=== PATIENT | female | born 1990 | race Caucasian/White ===

== ENCOUNTER 2019-12-19 19:04 | Inpatient (IN) | payer BC, SELFPAY ==
[2019-12-19] VITALS (10 sets, daily range): BP systolic 96–134; BP diastolic 57–92; PULSE 78–107; TEMP 36.7–37.1; BMI 25.2
--- NOTE | 2019-12-19 19:04 | LDADM ---
This patient, DINAH DAI, was admitted to Labor/Delivery/Recovery 105 on 12/19/19 at 19:04. Plans for labor, pain management and were discussed with patient. Patient/family oriented to hospital policies and general routines including ID bracelet, bed and alarms, visiting hours, pain management, procedures, bathroom and other care routines, personal items, smoking policy, room service/diet and guest tray routines, infant security routines, and visiting hours. Patient/Family are encouraged to report perceived risks to care and to ask questions if they do not understand what they are told or what they should do. See OBIX for further documentation.
[2019-12-19 19:59] LABS: Basophils Percent Auto 0.2 % (0.2-1.2); Eosinophils Absolute Auto 0.2 K/mm3 (0-0.3); Eosinophils Percent Auto 1.4 % (0-4.4); Hemoglobin 12.9 g/dL (12.0-15.0); Immature Granulocyte Absolute 0.06 K/mm3 (0.00-0.031); Immature Granulocyte Percent A 0.4 % (0-0.5); Mean Corpuscular HGB Conc 33.9 g/dl (32-36); Mean Corpuscular Hemoglobin 31.2 pg (26-34); Mean Corpuscular Volume 91.8 fl (80-100); Mean Platelet Volume 10.7 fl (7.4-10.4); Monocytes Absolute Auto 1.1 K/mm3 (0.1-0.6); Monocytes Percent Auto 6.7 % (2.6-8.5); Neutrophils Absolute Auto 12.7 K/mm3 (1.3-6.7); Neutrophils Percent Auto 75.3 % (45.5-73.1); Platelet Count Result 238 k/mm3 (150-375); Red Blood Count 4.14 M/mm3 (4.2-5.4); Red Cell Distribution Width 12.7 % (11.5-14.5); White Blood Count 16.9 K/mm3 (4.5-10.0)
[2019-12-19] MEDS: DINOPROSTONE 10 MG VAG INSERT VAGINAL (20:12)
[2019-12-20] VITALS (165 sets, daily range): BP systolic 83–219; BP diastolic 40–199; PULSE 35–133; RESP 18; TEMP 36.5–37.2; O2SAT 83–100
[2019-12-20] MEDS: OXYTOCIN 30 UNITS/NS 500 ML 30 UNITS/500 ML BAG IV CONT (05:12)
[2019-12-20] MEDS: LACTATED RINGERS 1,000 ML 125 ML IV CONT ×4 (05:13→12:38)
--- NOTE | 2019-12-20 07:30 | WPDOBADMIT ---
Obstetrics - Admit Note Admission Note: record reviewed. Additions to the history and/or subsequent changes in the physical findings follow. 29 y/o G1 at 40 1/7 weeks here for induction of labor. Cervidil overnight, has been withdrawn. GBS neg. Pregancy essentially uncomplicated. AVSS NST reactive TOCO: Contractions every 2-3 min ABD soft, nontender, gravid, vertex EXT nontender Cervix 2-3/50/-2. AROM with clear fluid. Vertex. A: IUP at term, desiring induction of labor. P: S/p Cervidil, now receiving oxytocin. Anticipate .
--- NOTE | 2019-12-20 10:25 | PC.NURSE ---
1010--Phone call to Dr. Charles re: u/s results shows retained products of conception. Orders for consent for D&C.
[2019-12-20 10:31] LABS: Rapid Plasma Reagin Non-Reactive (NonReactive)
--- NOTE | 2019-12-20 11:32 | PM.OBPNLAB ---
Pain Control Date/time seen: 12/20/19 11:32 Comments: Comfortble with epidural. Pelvic Exam Comments: /-. IUPC placed. NST reactive TOCO: contractions every 2-3 min Assessment and Plan Comments: Continue labor.
--- NOTE | 2019-12-20 17:04 | PM.OBPNLAB ---
Pain Control Date/time seen: 12/20/19 17:04 Comments: Feeling more pressure. Pelvic Exam Comments: AVSS NST reactive TOCO: contractions every 2-3 min Cervix C/+1 Assessment and Plan Comments: Begin pushing.
--- NOTE | 2019-12-20 18:48 | P.PCNOB_ITS ---
OB - Delivery Note Procedure Delivery date: 12/20/19 Procedure: induction of labor with Induction method: AROM and per pitocin protocol Delivery monitor: external FHT, external uterine and internal uterine Route of delivery: Episiotomy description: Midline Delivery repair: vicryl (3-0) Specimen: Yes (cord blood) Estimated blood loss (mL): 95 Anesthesia type: Epidural Disposition: PACU Complications: None Narrative: 29 y/o G1 at 40 1/7 weeks gestation who presented to the hospital for induction of labor. Cervidil was placed overnight, followed by intravenous oxyt ocin the following morning. Amniotomy was performed with return of clear fluid. She received an epidural for pain control. Her labor progressed and her cervix dilated completely. She pushed with good effort. A midline episiotomy was made, and she delivered the infant's head to the perineum from TANJA position. A loose nuchal cord was splinted and the body delivered. The cord was reduced. The nose and mouth were bulb suctioned. After a delay, the cord was clamped and cut. The was handed off the field. Cord blood was collected. The placenta delivered spontaneously and was grossly normal in appearance. The usual 3 vessel cord was noted. The midline episiotomy was reapproximated using 3 0 Vicryl in the usual layered fashion. Excellent hemostasis resulted as did excellent reapproximation of the normal anatomy. Needle and instrument counts were correct. The patient was taken to recovery room in stable condition. The infant went to the nursery in stable condition. I was present and scrubbed for the entire delivery. Baby Date of : 12/20/19 Time of : 18:30 Weeks of gestation at delivery: 40 Infant gender: Male Weight (pounds): 7 Weight (ounces): 12 presentation: vertex Placenta delivery description: Spontaneous and Normal Configuration cord vessel description: 3 Vessels score one minute: 8 score five minutes: 9
--- NOTE | 2019-12-20 18:52 | PM.OBDSVD ---
DS: Diagnosis Discharge Diagnosis (1) (normal spontaneous vaginal delivery): Code(s): O80 - Encounter for full-term uncomplicated delivery Status: Acute OB - DS: Summary OB Procedures : None OB Procedures Intrapartum: Spontaneous Vag Delivery OB Procedures: : None Time Spent with Patient Time attestation: Total time spent providing and/or coordinating discharge services: DS: Data Data Completed and Pending Labs on day of discharge: Labs from last 24 hours 12/19/19 12/19/19 12/19/19 19:53 19:53 19:53 WBC 16.9 H RBC 4.14 L Hgb 12.9 Hct 38.0 MCV 91.8 MCH 31.2 MCHC 33.9 RDW 12.7 Plt Count 238 MPV 10.7 H Immature Gran % (Auto) 0.4 Neut % (Auto) 75.3 H Lymph % (Auto) 16.0 L [place] % (Auto) 6.7 Eos % (Auto) 1.4 Baso % (Auto) 0.2 Lymph # (Auto) 2.70 [place] # (Auto) 1.1 H Eos # (Auto) 0.2 Baso # (Auto) 0.0 Abs Immat Gran (auto) 0.06 H Absolute Neuts (auto) 12.7 H Absolute Nucleated RBC 0.0 Nucleated RBC % 0.0 RPR Non-reactive Blood Type B Positive Antibody Screen Negative Discharge Plan Discharge Attending physician on discharge: Mickey Paez Discharging Clinician: Mickey Paez Patient Disposition: Home, Self-Care Activity: pelvic rest Diet: regular Discharge Instructions: Call or return if temperature above 100.4? F, increased abdominal pain, increased vaginal bleeding or any new problems. Stand Alone Forms: General Discharge Information Follow-up/Referrals: Mickey Paez MD [Physician] - (6 weeks) Discharge Medications: New ibuprofen 600 mg tablet 600 mg PO Q6H PRN (Reason: cramps) Qty: 30 RF: 0 No Action PNV cmb#95-ferrous fumarate-FA [] 28 mg iron- 800 mcg Tablet 1 tablet PO DAILY RF: 0 Date of admission: 12/19/19 19:04 Primary Care Provider: UNKNOWN,DOCTOR Admitting Provider: Mickey Paez Attending physician on admission: Mickey Paez
--- NOTE | 2019-12-20 21:10 | PC.NURSE ---
Patient transferred to post room #283 via wheelchair. Support person present. Oriented to unit, room, information board, rooming in, admission packet and security measures. Patient verbalizes understanding.
[2019-12-20] MEDS: IBUPROFEN 600 MG TABLET PO (21:49)
[2019-12-21] MEDS: DOCUSATE SODIUM 100 MG CAPSULE PO ×2 (04:13→17:12)
[2019-12-21] MEDS: IBUPROFEN 600 MG TABLET PO ×4 (04:13→23:57)
[2019-12-21 05:38] LABS: Hematocrit 35.6 % (37.0-47.0); Hemoglobin 11.8 g/dL (12.0-15.0)
[2019-12-21 07:35] VITALS: BP 118/82; PULSE 73; RESP 18; TEMP 36.9; O2SAT 100
--- NOTE | 2019-12-21 07:55 | PC.NURSE ---
Consulted with patient, mother reports tenderness with feeding. Both nipples are slightly reddened from incorrect latch. Nipple care reviewed. Reviewed infant feeding cues, frequencies, duration of feedings, feeding elimination flow sheet, and signs of adequate intake. Demonstrated stimulation techniques to wake for feeding. Assisted with infant to breast. Reviewed positioning/alignment in cross cradle, holding breast in U hold and guided asymmetrical latch on. Infant was able to latch correctly. Mother quickly reports she can feel is latched more deeply than previous feedings. nursed eagerly, with steady draws and frequent swallowing noted. Reviewed signs of a correct latch, effective nursing and suck swallow ratio. Infant was able to maintain latch without discomfort to mother. Suggested mother stimulate to keep awake and nursing effectively for increased intake and assist with maintaining deep latch. Demonstrated how to adjust latch more deeply while feeding. Instructed mother to call out for RN assistance if she is unable to latch for feeding or she has discomfort with nursing. Instructed feeding should be initiated three hours from start of last feeding or if feeding cues are noted before. Mother voiced understanding of information shared
[2019-12-21] MEDS: MULTIVIT/MIN/PREN/FOL AC/IRON TABLET 1 TAB PO (08:37)
--- NOTE | 2019-12-21 11:37 | WPDANLDPN2 ---
Anes-Prog Note L&D Date/Time: 12/21/19 11:37 Comfortable throughout: labor and delivery Neuraxial method: epidural Epidural/Spinal procedure site: clean & non-tender Neuro status: Neuro function grossly intact. Cardiovascular status: normal Respiratory status: normal Airway patency: baseline Mental status: baseline Post-Op hydration status: normal Vital Signs: Last Vital Signs Temp 98.4 F 12/21/19 07:35 Pulse 73 12/21/19 07:35 Resp 18 12/21/19 07:35 BP 118/82 12/21/19 07:35 Pulse Ox 100 12/21/19 07:35 I/O: Intake & Output 12/20/19 12/21/19 12/21/19 23:59 07:59 15:59 Intake Total 1000 Output Total 1100 Balance -100 Post-procedural complaints: none Patient feedback: Patient satisfied with anesthetic care.
--- NOTE | 2019-12-21 13:26 | PM.OBPNVD ---
OB - PN: Subj Subjective Date/time seen: 12/21/19 13:26 Narrative: Pain OK. Desires circumcision for son. OB - PN: Obj Data Labs CBC & Chem 7: 12/21/19 04:41 Labs: Laboratory Results - last 24 hr 12/21/19 04:41 Hgb 11.8 L Hct 35.6 L OB - PN A/P Plan Comments: A: PPD#1, doing well. P: Routine care. Reviewed circ. Exam Psych: Other: AVSS ABD soft, nontender, fundus firm EXT nontender
[2019-12-21] MEDS: BENZOCAINE 20% AER SPR (*SP) 56 GM CAN 1 SPRAY TOPICAL (17:11)
[2019-12-21] MEDS: WITCH HAZEL 40 PADS 1 PAD TOPICAL (17:11)
[2019-12-21 19:52] VITALS: BP 126/82; PULSE 74; RESP 18; TEMP 36.9; O2SAT 97
[2019-12-22] MEDS: IBUPROFEN 600 MG TABLET PO ×2 (05:59→12:49)
[2019-12-22 07:40] VITALS: BP 132/77; PULSE 91; RESP 18; TEMP 36.7; O2SAT 100
--- NOTE | 2019-12-22 09:19 | PM.OBPNVD ---
OB - PN: Subj Subjective Date/time seen: 12/22/19 09:19 Narrative: Pain OK. Would like to go home. OB - PN: Obj Data Labs CBC & Chem 7: 12/21/19 04:41 OB - PN A/P Plan Comments: A: PPD#2, doing well. P: Home to f/u 6 weeks. Exam Psych: Other: AVSS ABD soft, nontender, fundus firm EXT nontender
--- NOTE | 2019-12-22 10:00 | PC.NURSE ---
Observed mother is able to independently latch with appropriate positioning/alignment. She reports slight nipple discomfort, is feeding as required and waking to feed if needed. Assisted with a deeper latch, demonstrated how to adjust latch more deeply while feeding. Mother began supplementing during the night and plans to continue until her milk is establishes. Infant has had 8 effective feedings in the past 24 hours, and is currently meeting outcomes for weight, output, jaundice and feeding frequencies. Mother states she feels confident to continue current feeding plan at home. Reviewed transition to breast milk, signs of adequate intake, and engorgement/relief. Instructed to call ICP if intake/output less than required. Reviewed regular medications mother is taking. Information provided per Taniya. Reviewed community resources on the [facility] website and in the Mom/Baby guide. Information on outpatient services provided. Mother has no further questions at this time.
[2019-12-22] MEDS: DOCUSATE SODIUM 100 MG CAPSULE PO (10:24)
[2019-12-22] MEDS: MULTIVIT/MIN/PREN/FOL AC/IRON TABLET 1 TAB PO (10:24)
--- NOTE | 2019-12-22 13:45 | PC.NURSE ---
1120-Patient viewed the discharge video Mother & Baby Care, The First Two Weeks . Patient was given the opportunity and encouraged to ask questions. Patient verbalized understanding of information shared and has been given the mother/baby guide for home reference.
[2019-12-23 11:26] VITALS: BP 116/85; PULSE 75; RESP 20; TEMP 36.8
== END 2019-12-22 14:04 | disposition home or self-care (01) | DRG 807 ==
LOC: ANHLDR 12-20 18:53 → ANHOB2 12-20 21:15
PROVIDERS: Admitting Provider Obstetrics & Gynecology; Visit Provider Obstetrics & Gynecology
DX: O69.81X0 Labor and delivery complicated by cord around neck, without compression, not applicable or unspecified (principal); Z37.0 Single live birth; Z3A.40 40 weeks gestation of pregnancy; Z23 Encounter for immunization; O76 Abnormality in fetal heart rate and rhythm complicating labor and delivery
CPT/HCPCS: 36415; 85014; 85018; 85025; 86592; 86850; 86900; 86901; A9270; J2590; J2795; J7120

== ENCOUNTER 2021-10-10 15:54 | Inpatient (IN) | payer BC, SELFPAY ==
[2021-10-10] VITALS (16 sets, daily range): BP systolic 106–132; BP diastolic 64–94; PULSE 63–109; TEMP 37.6; O2SAT 99–100; BMI 25.0
--- NOTE | 2021-10-10 16:32 | LDADM ---
This patient, Mary Doss, was admitted to Labor/Delivery/Recovery 107 on 10/10/21 at 15:54. Plans for labor, pain management and were discussed with patient. Patient/family oriented to hospital policies and general routines including ID bracelet, bed and alarms, visiting hours, pain management, procedures, bathroom and other care routines, personal items, smoking policy, room service/diet and guest tray routines, security routines, and visiting hours. Patient/Family are encouraged to report perceived risks to care and to ask questions if they do not understand what they are told or what they should do. See OBIX for further documentation.
[2021-10-10 16:43] LABS: Basophils Percent Auto 0.2 % (0.2-1.2); Eosinophils Absolute Auto 0.2 K/mm3 (0-0.3); Eosinophils Percent Auto 1.6 % (0-4.4); Hematocrit 38.1 % (37.0-47.0); Immature Granulocyte Absolute 0.06 K/mm3 (0.00-0.031); Immature Granulocyte Percent A 0.5 % (0-0.5); Lymphocytes Absolute Auto 1.98 K/mm3 (0.9-3.2); Mean Corpuscular HGB Conc 34.1 g/dl (32-36); Mean Corpuscular Hemoglobin 31.5 pg (26-34); Mean Corpuscular Volume 92.3 fl (80-100); Mean Platelet Volume 10.2 fl (7.4-10.4); Monocytes Absolute Auto 0.7 K/mm3 (0.1-0.6); Monocytes Percent Auto 5.2 % (2.6-8.5); Neutrophils Absolute Auto 9.5 K/mm3 (1.3-6.7); Neutrophils Percent Auto 76.5 % (45.5-73.1); Platelet Count Result 215 k/mm3 (150-375); Red Blood Count 4.13 M/mm3 (4.2-5.4); Red Cell Distribution Width 13.1 % (11.5-14.5); White Blood Count 12.4 K/mm3 (4.5-10.0)
[2021-10-10] MEDS: LACTATED RINGERS 1,000 ML 125 ML IV CONT (16:45)
[2021-10-10] MEDS: DINOPROSTONE 10 MG VAG INSERT VAGINAL (16:50)
[2021-10-10] MEDS: ceFAZolin 2 GM/D5W 50 ML 2 GM/50 ML BAG IVPB (16:56)
--- NOTE | 2021-10-10 17:32 | WPDANESEPP ---
Anes - Eval Pre Procedure Procedure: labor epidural Date/Time: 10/10/21 17:32 Surgeon: camelia Preop Diagnosis: pain during labor Pre Op Diagnosis: iol Patient Data Age: 31 Gender: F Height: 1.68 m Weight: 70.5 kg Last Vital Signs Temp 37.6 C 10/10/21 16:40 Pulse 95 10/10/21 17:31 BP 124/85 10/10/21 17:31 Pulse Ox 99 10/10/21 16:37 Allergies Allergy/AdvReac Type Severity Reaction Status Date / Time Penicillins Allergy Hives Verified 11/20/19 14:38 Home Medications Medication Instructions Recorded Confirmed Type PNV cmb#95-ferrous fumarate-FA 1 tablet PO DAILY 09/06/21 10/10/21 History [] levothyroxine 50 mcg PO DAILY 09/06/21 10/10/21 History hydrocortisone 1 ea TOPICAL BID PRN 10/10/21 10/10/21 History Laboratory Tests 10/10/21 10/10/21 16:37 16:37 WBC 12.4 K/mm3 H K/mm3 (4.5-10.0) RBC 4.13 M/mm3 L M/mm3 (4.2-5.4) Hgb 13.0 g/dL g/dL (12.0-15.0) Hct 38.1 % % (37.0-47.0) MCV 92.3 fl fl (80-100) MCH 31.5 pg pg (26-34) MCHC 34.1 g/dl g/dl (32-36) RDW 13.1 % % (11.5-14.5) Plt Count 215 k/mm3 k/mm3 (150-375) MPV 10.2 fl fl (7.4-10.4) Immature Gran % (Auto) 0.5 % % (0-0.5) Neut % (Auto) 76.5 % H % (45.5-73.1) Lymph % (Auto) 16.0 % L % (18.3-44.2) [place] % (Auto) 5.2 % % (2.6-8.5) Eos % (Auto) 1.6 % % (0-4.4) Baso % (Auto) 0.2 % % (0.2-1.2) Lymph # (Auto) 1.98 K/mm3 K/mm3 (0.9-3.2) [place] # (Auto) 0.7 K/mm3 H K/mm3 (0.1-0.6) Eos # (Auto) 0.2 K/mm3 K/mm3 (0-0.3) Baso # (Auto) 0.0 K/mm3 K/mm3 (0.0-0.1) Abs Immat Gran (auto) 0.06 K/mm3 H K/mm3 (0.00-0.031) Absolute Neuts (auto) 9.5 K/mm3 H K/mm3 (1.3-6.7) Absolute Nucleated RBC 0.0 K/mm3 K/mm3 (0.0-0.012) Nucleated RBC % 0.0 % % (0.0-0.2) RPR Pending Patient hx anesthesia problems: none Family hx anesthesia problems: none Results Review: All pre-operative results and documents have been reviewed as part of the pre-operative evaluation. [facility] Family History Family History Sibling Colon cancer Grandparent Diabetes mellitus Grandparent Ovarian cancer Mother Asthma Idiopathic anaphylaxis Sibling Asthma Grandparent Malignant neoplasm of prostate Social History Social History Smoking status: Never smoker Second hand tobacco smoke exposure: No Substance use: never Spiritual care concerns: No Exam Day of Procedure 10/10/21 17:32
[2021-10-11] VITALS (173 sets, daily range): BP systolic 79–163; BP diastolic 36–133; PULSE 55–201; RESP 18–20; TEMP 36.6–37.8; O2SAT 74–100
[2021-10-11] MEDS: OXYTOCIN 30 UNITS/NS 500 ML 30 UNITS/500 ML BAG IV CONT (05:45)
--- NOTE | 2021-10-11 09:15 | WPDOBADMIT ---
Obstetrics - Admit Note Admission Note: record reviewed. Additions to the history and/or subsequent changes in the physical findings follow. 31 y/o at 40 5/7 weeks here for induction of labor. Recent COVID-19 infection, still on isolation. GBS bacteruria, have planned Ancef. No cough, no SOB. Good movement. Had Cervidil last night, has been withdrawn. Feeling contractions. AVSS NST reactive TOCO: contractions every 2-3 min ABD soft, nontender, gravid, vertex EXT nontender Cervix 4/50/-2. AROM with clear fluid. Vertex. A: IUP at term here for IOL. COVID-19 infection, clinically stable. GBS bacteruria. P: Oxytocin. Ancef. Anticipate .
[2021-10-11] MEDS: LACTATED RINGERS 1,000 ML 125 ML IV CONT ×3 (10:12→15:37)
[2021-10-11 11:37] LABS: Rapid Plasma Reagin Non-Reactive (NonReactive)
[2021-10-11] MEDS: PHENYLEPHRINE 1,000 MCG/10 ML SYRINGE 100 MCG IV PUSH (11:57)
[2021-10-11] MEDS: ONDANSETRON INJ 4 MG/2 ML VIAL IV PUSH (12:53)
--- NOTE | 2021-10-11 13:04 | PM.OBPNLAB ---
Pain Control Date/time seen: 10/11/21 13:04 Comments: Pain under good control with epidural. Had wet tap, some hypotension, some FHR decelerations. These have resolved with usual measures. Contractions infrequent with oxytocin off. Pelvic Exam Dilation (cm): 6 Effacement (%): 80 station: -1 Contractions Contraction pattern: Irregular Status status: Category ll Assessment and Plan Comments: FHR reassuring. Maternal status reassuring. Plan to resume oxytocin.
--- NOTE | 2021-10-11 17:24 | P.PCNOB_ITS ---
OB - Delivery Note Procedure Delivery date: 10/11/21 Procedure: Induction of labor with Induction method: per cervidil protocol Delivery augmentation: rupture of membranes and pitocin Delivery monitor: external FHT and external uterine Route of delivery: Laceration Description: Vaginal - 1st Degree and Labial Delivery repair: vicryl (3-0) Specimen: Yes (cord blood) Quantitative Blood Loss (ml): 220 Anesthesia type: Epidural Disposition: PACU Complications: None Narrative: 31 y/o at 40 5/7 weeks gestation who presented to the [facility] for induction of labor. She was given Ancef for GBS bacteruria. Cervidil was placed overnight, then withdrawn the following morning. Oxytocin was administered intravenously. Amniotomy was performed with return of clear fluid. She received an epidural for pain control. Her labor progressed and her cervix dilated completely. She pushed with good effort and delivered the 's head to the perineum, followed by the body. The nose and mouth were bulb suctioned. After a delay, the cord was clamped and cut. The infant was handed off the field. Cord blood was collected. The placenta delivered spontaneously and was grossly normal in appearance. The usual 3 vessel cord was noted. A distal vaginal laceration was sustained, as were bilateral labial lacerations. These were reapproximated using 3 0 Vicryl in the usual fashion. Excellent hemostasis resulted as did excellent reapproximation of the normal anatomy. Needle and instrument counts were correct. The patient was taken to recovery room in stable condition. The infant went to the nursery in stable condition. I was present and scrubbed for the entire delivery. Baby Date of : 10/11/21 Time of : 17:04 Weeks of gestation at delivery: 40 Infant gender: Female Weight (pounds): 7 Weight (ounces): 13 presentation: vertex position: Right Occiput Anterior Placenta delivery description: Spontaneous and Normal Configuration cord vessel description: 3 Vessels and Delayed Cord Clamping score one minute: 9 score five minutes: 9
--- NOTE | 2021-10-11 17:29 | PM.OBDSVD ---
DS: Admitting Diagnosis Discharge Date 10/13/21 Admitting Diagnosis IUP at 40 5/7 weeks GBS bacteruria COVID-19 infection DS: Discharge Diagnosis Discharge Diagnosis (1) (normal spontaneous vaginal delivery): Code(s): O80 - Encounter for full-term uncomplicated delivery Status: Acute (2) GBS bacteriuria: Code(s): R82.71 - Bacteriuria Status: Acute (3) COVID-19 affecting childbirth: Code(s): O98.52 - Other viral diseases complicating childbirth; U07.1 - COVID-19 Status: Acute OB - DS: Summary OB Procedures : None OB Procedures Intrapartum: Spontaneous Vag Delivery OB Procedures: : None DS: Data Data Completed and Pending Labs on day of discharge: Labs from last 24 hours 10/10/21 10/10/21 16:37 16:37 RPR Non-reactive Blood Type B Positive Antibody Screen Negative Discharge Plan Discharge Attending physician on discharge: Mickey Paez Consulting providers: Willem Golden Discharging Clinician: Mickey Paez Patient Disposition: Home, Self-Care Activity: pelvic rest Diet: regular Discharge Instructions: Call or return if temperature above 100.4? F, increased abdominal pain, increased vaginal bleeding or any new problems. Education: Mom and Baby Guide Given to: Mother Follow-Up: Call your delivering provider's office for an appointment to be seen in: 6 Weeks Mom and baby should come to the [facility] for the follow-up appointment. Appointment Date/Time: October 15, 2021 at 11:00 am What to expect at your follow-up visit: Physical Assessment Call [phone] if you are unable to keep your appointment time. BREAST CARE: * Wear a snug supportive bra. * For engorgement discomfort: Breast Feeding: * Apply warm moist washcloths * Express milk as needed to relieve engorgement * Wear loose clothing * For sore nipples: * Identify correct latch-on * Apply warm moist washcloths before and after nursing * Air dry nipples after nursing * May apply [place] cream to nipples PERINEAL CARE: * Until bleeding stops, use your kala bottle after urinating * Change your pad frequently throughout the day * You may take sitz baths several times a day (fill your bathtub with warm water and soak for 20 minutes.) Do NOT bathe in the water * No tub baths until seen by your physician - You may shower ACTIVITY: * Rest as much as possible. * Do not exercise or lift anything heavier than your baby (such as laundry or other children.) * Avoid stairs or driving as much as possible. * Do not put anything into the vagina. No douching, tampons, or sexual activity until seen by physician. NOTIFY PHYSICIAN IF YOU HAVE ANY QUESTIONS OR IF ANY OF THE FOLLOWING SYMPTOMS OCCUR: * If your perineum becomes red, swollen, or more painful than what you have experienced in the hospital. * If your vaginal bleeding becomes foul smelling. * If your vaginal bleeding becomes more heavy than a period or if your bleeding changes from pink to bright red. However, you may pass an occasional [place]-sized clot once or twice for the first week . * If you experience a sharp, shooting pain in you calves. * If you discover a hard, reddened area on your breast or if you experience flu-like symptoms. DIET: * Eat regular, well-balanced meals. * Drink plenty of fluids daily. If , drink to thirst. Stand Alone Forms: General Discharge Information Follow-up/Referrals: Mickey Paez MD [Physician] - 6 Weeks Discharge Medications: New ibuprofen 600 mg tablet 600 mg PO Q6H PRN (Reason: cramps) Qty: 30 RF: 0 Continued levothyroxine 50 mcg Tablet 50 mcg PO DAILY RF: 0 PNV cmb#95-ferrous fumarate-FA [] 28 mg iron- 800 mcg Tablet 1 tablet PO DAILY RF: 0 hydrocortisone 2.5 % cream with perineal applicator 1 ea topical BID PRN (Re
[2021-10-11] MEDS: OXYTOCIN 30 UNITS/NS 500 ML 30 UNITS/500 ML BAG 125 UNITS IV CONT (17:39)
[2021-10-11] MEDS: COSYNTROPIN 0.25 MG/ML VIAL 1 MG IV PUSH (18:54)
[2021-10-11] MEDS: ACETAMINOPHEN 325 MG TABLET 650 MG PO (19:26)
[2021-10-11] MEDS: IBUPROFEN 600 MG TABLET PO (19:26)
[2021-10-11] MEDS: BENZOCAINE 20% AER SPR (*SP) 56 GM CAN 1 SPRAY TOPICAL (19:27)
[2021-10-11] MEDS: WITCH HAZEL 40 PADS 1 PAD TOPICAL (19:27)
--- NOTE | 2021-10-11 19:44 | ADMGEN ---
This patient, Mary Doss, was admitted to OB 2nd Floor Room 283-00. Patient/family oriented to hospital policies and general routines including ID bracelet, bed and alarms, visiting hours, pain management, procedures, bathroom and other care routines, personal items, smoking policy, room service/diet, and visiting hours. Information on how to activate the Rapid Response Team has been discussed. Patient/Family are encouraged to report perceived risks to care and to ask questions if they do not understand what they are told or what they should do.
[2021-10-12] VITALS (7 sets, daily range): BP systolic 112–126; BP diastolic 73–85; PULSE 57–80; RESP 14–18; TEMP 36.6–37; O2SAT 99–100
[2021-10-12] MEDS: ACETAMINOPHEN 325 MG TABLET 650 MG PO ×2 (00:51→12:30)
[2021-10-12] MEDS: IBUPROFEN 600 MG TABLET PO ×3 (00:52→17:15)
[2021-10-12 04:48] LABS: Hematocrit 34.2 % (37.0-47.0); Hemoglobin 11.7 g/dL (12.0-15.0)
--- NOTE | 2021-10-12 07:54 | PM.OBPNVD ---
OB - PN: Subj Subjective Date/time seen: 10/12/21 07:54 Patient comments: no complaints, pain well controlled and tolerating diet [place] feeding status: exclusively breast feeding Narrative: patient doing well this AM. No complaints. Pain is well controlled. She reports minimal bleeding. She is ambulating and voiding without difficulty. She is tolerating PO. She denies N/V, fever, chills. OB - PN: Obj Data Labs CBC & Chem 7: 10/12/21 03:48 Labs: Laboratory Results - last 24 hr 10/10/21 10/12/21 16:37 03:48 Hgb 11.7 L Hct 34.2 L RPR Non-reactive OB - PN A/P Plan day: 1 Plan: routine care Comments: patient doing well H/H stable continue routine care Time Spent With Patient Time: Total time spent is greater than 50% in coordination of care (as documented) at patient's floor/unit and/or counseling patient: Time with patient: less than 15 minutes Review of Systems Review of Systems: All systems reviewed & are unremarkable except as noted in HPI and below Exam Const: General: comfortable and no acute distress Resp: Effort & Inspection: normal respiratory effort Cardio: Rate: regular rate GI: GI Palp: Yes Soft to palpation and No Tenderness to palpation present (GI) Auscultation: normal bowel sounds Other: fundus firm and below umbilicus. Psych: Affect: normal affect
[2021-10-12] MEDS: DOCUSATE SODIUM 100 MG CAPSULE PO ×2 (08:00→17:15)
[2021-10-12] MEDS: MULTIVIT/MIN/PREN/FOL AC/IRON TABLET 1 TAB PO (08:00)
[2021-10-12] MEDS: LEVOTHYROXINE SODIUM 50 MCG TABLET PO (08:00)
[2021-10-12] MEDS: LANOLIN (LANSINOH) 7.5 GM CREAM 1 APPLIC TOPICAL (08:00)
--- NOTE | 2021-10-12 11:42 | PC.NURSE ---
1135 - Mother verbalizes she is able to independently latch with appropriate positioning/alignment. She denies any nipple discomfort, verbalized watching for feeding cues and is responsive feeding . is currently meeting outcomes for weight, output, jaundice and feeding frequencies. Mother states she does not require feeding assist/education at this time. Encouraged mother to call out for future feedings if assistance is needed.
--- NOTE | 2021-10-12 18:16 | PC.NURSE ---
1330 Spoke with anesthesia. reported no signs of headache. Instructed to remove catheter and observe for symptoms of spinal headache. Epidural catheter removed, blue tip visualized, discussed s/sx to report. 1345 Reports no sign of headache 1400 Reports no sign of headache even upon ambulating to bathroom. Pt sitting upright in bed.
[2021-10-13] MEDS: IBUPROFEN 600 MG TABLET PO ×2 (00:02→07:43)
[2021-10-13] MEDS: ACETAMINOPHEN 325 MG TABLET 650 MG PO (00:02)
[2021-10-13] MEDS: MULTIVIT/MIN/PREN/FOL AC/IRON TABLET 1 TAB PO (07:42)
[2021-10-13] MEDS: LEVOTHYROXINE SODIUM 50 MCG TABLET PO (07:42)
[2021-10-13 07:45] VITALS: BP 117/80; PULSE 64; RESP 18; TEMP 36.5
--- NOTE | 2021-10-13 08:27 | PM.OBDSVD ---
DS: Admitting Diagnosis Discharge Date 10/13/21 Admitting Diagnosis intrauterine at term OB - DS: Summary OB Procedures : None OB Procedures Intrapartum: Spontaneous Vag Delivery OB Procedures: : None Status at Discharge Functional status at discharge: independent ambulation Overall status at discharge: patient is back to baseline Time Spent with Patient Time attestation: Total time spent providing and/or coordinating discharge services: Time spent: Less than 30 minutes Exam Const: General: comfortable and no acute distress Resp: Effort & Inspection: normal respiratory effort Auscultation: clear to auscultation bilaterally Cardio: Rate: regular rate GI: GI Palp: Yes Soft to palpation Auscultation: normal bowel sounds Other: Fundus firm below umbilicus Psych: Appearance: grossly normal Mental Status: mental status grossly normal Affect: normal affect Discharge Plan Discharge Attending physician on discharge: Mickey Paez Discharging Clinician: Mickey Paez Patient Disposition: Home, Self-Care Activity: pelvic rest Diet: regular Discharge Instructions: Call or return if temperature above 100.4? F, increased abdominal pain, increased vaginal bleeding or any new problems. Stand Alone Forms: General Discharge Information Follow-up/Referrals: Mickey Paez MD [Physician] - 6 Weeks Discharge Medications: New ibuprofen 600 mg tablet 600 mg PO Q6H PRN (Reason: cramps) Qty: 30 RF: 0 No Action levothyroxine 50 mcg Tablet 50 mcg PO DAILY RF: 0 PNV cmb#95-ferrous fumarate-FA [] 28 mg iron- 800 mcg Tablet 1 tablet PO DAILY RF: 0 hydrocortisone 2.5 % cream with perineal applicator 1 ea topical BID PRN (Reason: Hemorrhoids) RF: 0 Date of admission: 10/10/21 15:54 Primary Care Provider: KeonFlavia Admitting Provider: Mickey Paez Attending physician on admission: Mickey Paez Condition: Stable
--- NOTE | 2021-10-13 11:08 | WPDANLDPN2 ---
Anes-Prog Note L&D Date/Time: 10/13/21 11:08 Comfortable throughout: labor and delivery (pt states epidural stopped working once she reached 8cm despite additional boluses) Neuraxial method: epidural Epidural/Spinal procedure site: clean & non-tender Neuro status: Neuro function grossly intact. Cardiovascular status: normal Respiratory status: normal Airway patency: baseline Mental status: baseline Post-Op hydration status: normal Vital Signs: Last Vital Signs Temp 97.7 F 10/13/21 07:45 Pulse 64 10/13/21 07:45 Resp 18 10/13/21 07:45 BP 117/80 10/13/21 07:45 Pulse Ox 100 10/12/21 17:00 Pain score (VAS): 0 Post-procedural complaints: none Patient feedback: Patient satisfied with anesthetic care.
[2021-10-15 10:42] VITALS: BP 143/87; PULSE 67; RESP 20; TEMP 36.7; O2SAT 100
== END 2021-10-13 11:03 | disposition home or self-care (01) | DRG 807 ==
LOC: ANHLDR 10-11 17:32 → ANHOB2 10-11 19:47
PROVIDERS: Admitting Provider Obstetrics & Gynecology; PCP Registered Nurse; Visit Provider Obstetrics & Gynecology
DX: O99.824 Streptococcus B carrier state complicating childbirth (principal); Z37.0 Single live birth; O76 Abnormality in fetal heart rate and rhythm complicating labor and delivery; O70.0 First degree perineal laceration during delivery; Z3A.40 40 weeks gestation of pregnancy; Z86.16 Personal history of COVID-19
CPT/HCPCS: 36415; 85014; 85018; 85025; 86592; 86850; 86900; 86901; A9270; J0690; J0834; J2370; J2405; J2590; J7120

== ENCOUNTER 2021-10-16 18:07 | Outpatient (CLI) | payer BC, SELFPAY ==
[2021-10-16] VITALS (8 sets, daily range): BP systolic 120–175; BP diastolic 72–100; PULSE 57–79
[2021-10-16 18:39] LABS: Basophils Percent Auto 0.2 % (0.2-1.2); Eosinophils Absolute Auto 0.5 K/mm3 (0-0.3); Eosinophils Percent Auto 3.8 % (0-4.4); Hematocrit 40.5 % (37.0-47.0); Hemoglobin 13.7 g/dL (12.0-15.0); Immature Granulocyte Absolute 0.09 K/mm3 (0.00-0.031); Immature Granulocyte Percent A 0.7 % (0-0.5); Lymphocytes Absolute Auto 2.73 K/mm3 (0.9-3.2); Lymphocytes Percent Auto 22.2 % (18.3-44.2); Mean Corpuscular HGB Conc 33.8 g/dl (32-36); Mean Corpuscular Hemoglobin 31.8 pg (26-34); Monocytes Absolute Auto 0.7 K/mm3 (0.1-0.6); Monocytes Percent Auto 5.3 % (2.6-8.5); Neutrophils Absolute Auto 8.3 K/mm3 (1.3-6.7); Neutrophils Percent Auto 67.8 % (45.5-73.1); Platelet Count Result 316 k/mm3 (150-375); Red Blood Count 4.31 M/mm3 (4.2-5.4); Red Cell Distribution Width 12.6 % (11.5-14.5); White Blood Count 12.3 K/mm3 (4.5-10.0)
[2021-10-16 18:47] LABS: Alanine Aminotransferase 17 U/L (4-35); Albumin Level 4.3 g/dL (3.5-5.1); Alkaline Phosphatase 118 U/L (38-126); Anion Gap 11 mmol/L (8-16); Aspartate Amino Transferase 21 U/L (14-36); Bilirubin,Total 0.3 mg/dL (0.2-1.3); Blood Urea Nitrogen 13 mg/dL (7-17); Calcium 9.4 mg/dL (8.4-10.2); Carbon Dioxide 23 mmol/L (22-30); Chloride 103 mmol/L (98-107); Estimated Glomerular Filt Rate > 60; Glucose 103 mg/dL (65-110); Potassium 4.1 mmol/L (3.4-5.0); Sodium 137 mmol/L (137-145)
--- NOTE | 2021-10-16 18:59 | PC.NURSE ---
called Dr. Golden notified pt BP and PIH result. Labetalol order received. observe for one hour and if BP is stable, may discharge to home with labetalol Rx.
[2021-10-16] MEDS: LABETALOL HCL 100 MG TABLET 200 MG PO (19:05)
== END 2021-10-16 20:30 | disposition home or self-care (01) ==
LOC: ANHOBOP 18:16 → ANHLDR 20:05
PROVIDERS: PCP Registered Nurse; Visit Provider Obstetrics & Gynecology
DX: O13.9 Gestational [pregnancy-induced] hypertension without significant proteinuria, unspecified trimester (principal); Z3A.00 Weeks of gestation of pregnancy not specified
CPT/HCPCS: 36415; 80053; 84550; 85025; 99199; A9270

== ENCOUNTER 2023-02-19 08:06 | Outpatient (CLI) | payer BC, SELFPAY ==
--- NOTE | ~2023-02-19 | US_ITS ---
EXAMINATION: US thyroid DATE: 02/19/2023 08:31 INDICATION: Acquired hypothyroidism. TECHNIQUE: Multiple ultrasound images of the thyroid were obtained. COMPARISON: None. FINDINGS: The right thyroid lobe measures 4.0 x 1.1 x 1.6 cm. The left thyroid lobe measures 4.7 x 1.4 x 1.4 c m. There is normal echotexture and echogenicity throughout the thyroid gland. No discrete nodules id entified. Normal vascular flow is present. IMPRESSION: 1. Normal thyroid. Reviewed, dictated and finalized at location A. IMPRESSION: 1. Normal thyroid.
== END 2023-02-19 08:07 | disposition home or self-care (01) ==
PROVIDERS: PCP Registered Nurse; Visit Provider Registered Nurse
DX: E03.9 Hypothyroidism, unspecified (principal); R13.13 Dysphagia, pharyngeal phase
CPT/HCPCS: 76536

== ENCOUNTER 2023-05-09 14:06 | Emergency (ER) | payer BC, SELFPAY ==
[2023-05-09] VITALS (19 sets, daily range): BP systolic 116–147; BP diastolic 72–98; PULSE 72–130; RESP 10–31; TEMP 36.7; O2SAT 100
--- NOTE | 2023-05-09 14:12 | ECG_ITS ---
Measurements Intervals [place] Rate: 100 P: 72 NV: 146 QRS: 64 QRSD: 95 T: 50 QT: 312 QTc: 403 Interpretive Statements SINUS TACHYCARDIA NONSPECIFIC T-WAVE ABNORMALITY ABNORMAL RHYTHM ECG NO PREVIOUS ECG AVAILABLE FOR COMPARISON Electronically Signed On 05-09-2023 16:11:33 CDT by Mayank Urrutia M.D.
[2023-05-09 14:38] LABS: Basophils Percent Auto 0.2 % (0.2-1.2); Eosinophils Absolute Auto 0.3 K/mm3 (0-0.3); Eosinophils Percent Auto 2.9 % (0-4.4); Hematocrit 40.5 % (37.0-47.0); Hemoglobin 13.5 g/dL (12.0-15.0); Immature Granulocyte Absolute 0.02 K/mm3 (0.00-0.031); Immature Granulocyte Percent A 0.2 % (0-0.5); Lymphocytes Absolute Auto 1.75 K/mm3 (0.9-3.2); Lymphocytes Percent Auto 20.6 % (18.3-44.2); Mean Corpuscular HGB Conc 33.3 g/dl (32-36); Mean Corpuscular Hemoglobin 30.6 pg (26-34); Mean Corpuscular Volume 91.8 fl (80-100); Mean Platelet Volume 10.3 fl (7.4-10.4); Monocytes Absolute Auto 0.5 K/mm3 (0.1-0.6); Monocytes Percent Auto 5.4 % (2.6-8.5); Neutrophils Percent Auto 70.7 % (45.5-73.1); Platelet Count Result 262 k/mm3 (150-375); Red Blood Count 4.41 M/mm3 (4.2-5.4); Red Cell Distribution Width 12.2 % (11.5-14.5); White Blood Count 8.5 K/mm3 (4.5-10.0)
[2023-05-09 14:39] LABS: Alanine Aminotransferase 19 U/L (6-35); Albumin Level 4.7 g/dL (3.5-5.1); Alkaline Phosphatase 53 U/L (38-126); Anion Gap 9 mmol/L (8-16); Aspartate Amino Transferase 19 U/L (14-36); Bilirubin,Total 0.6 mg/dL (0.2-1.3); Blood Urea Nitrogen 16 mg/dL (7-17); Calcium 8.7 mg/dL (8.4-10.2); Carbon Dioxide 27 mmol/L (22-30); Chloride 101 mmol/L (98-107); Estimated CRCL calculation 76 ml/min; Estimated Glomerular Filt Rate > 60; Glucose 140 mg/dL (65-110); Potassium 4.1 mmol/L (3.4-5.0); Sodium 137 mmol/L (137-145)
[2023-05-09] MEDS: SODIUM CHLORIDE 0.9% IV 1,000 ML 999 ML IV CONT ×2 (17:15→17:54)
--- NOTE | 2023-05-09 17:59 | ED.GENADULT ---
HPI - General Adult General Chief complaint: Dizziness Stated complaint: lightheaded x2, nausea Time Seen by Provider: 05/09/23 16:12 History of Present Illness HPI narrative: 32-year-old female present emergency department for evaluation of lightheaded and dizziness. Patient had an episode of near syncope yesterday that she had onset of lightheaded and dizziness like she was going to pass out while standing. Patient reports she sat down and was able to drink some water and this improved. Patient reports today she had a second episode during which she had similar symptoms and needed to lay down and elevate her feet and felt improved. Patient's family came to pick her up and as they were driving home she had a third episode and so they presented to the emergency department for evaluation. When asked if the patient has been eating and drinking well she reported that she is quite busy with 2 toddlers. Patient does have prior history of hypertension during and was on labetalol but patient is no longer taking medications for blood pressure. Related Data Home Medications Medication Instructions Recorded Confirmed levothyroxine 50 mcg tablet 50 mcg PO DAILY 09/06/21 10/10/21 vit no.95-ferrous 1 tablet PO DAILY 09/06/21 10/10/21 fumarate 28 mg-folic acid 800 mcg tablet () hydrocortisone 2.5 % topical cream 1 ea topical BID PRN Hemorrhoids 10/10/21 10/10/21 with perineal applicator Allergies Allergy/AdvReac Type Severity Reaction Status Date / Time Penicillins Allergy Hives Verified 11/20/19 14:38 Review of Systems Review of Systems: All systems reviewed & are unremarkable except as noted in HPI and below PMFSH Family History Family History Sibling Colon cancer Grandparent Diabetes mellitus Grandparent Ovarian cancer Mother Asthma Idiopathic anaphylaxis Sibling Asthma Grandparent Malignant neoplasm of prostate Social History Social History Smoking status: Never smoker Second hand tobacco smoke exposure: No Substance use: never Spiritual care concerns: No Exam Narrative: APPEARANCE: Well appearing, no pain, no distress, well-nourished. HEAD: normocephalic, atraumatic. EYES: PERRLA/EOMI, conjunctivae clear. NOSE: Normal no drainage EARS:TMS clear with good light reflex. THROAT: Pharynx clear, no exudate. NECK: Supple. No adenopathy, no masses. RESPIRATORY: Airway patent, respirations nonlabored. Clear to auscultation bilaterally, no rales, rhonchi, wheezing. CARDIOVASCULAR: Regular rate and rhythm without murmurs rubs or gallops. ABDOMINAL: Soft, nontender, nondistended, normal bowel sounds MUSCULOSKELETAL: Moves all extremities. Strength/ROM intact, No edema, No calf tenderness. NEURO: Alert. Cranial nerves II through XII intact. Grossly intact SKIN: Warm, dry. Normal Color Course Course Emergency Course: 32-year-old female presented ED for evaluation of episodes of orthostatic hypotension. Patient does feel improved with treatment. Patient's orthostatic vital signs were resolved. Patient is D-dimer was negative patient's thyroid was normal. Patient was updated the results of her work-up and patient was comfortable with the plan for discharge and close follow-up. Vital Signs Vital signs: Vital Signs Temperature 98.1 F 05/09/23 14:08 Pulse Rate 105 H 05/09/23 14:08 Respiratory Rate 16 05/09/23 14:08 Blood Pressure 137/90 05/09/23 14:08 Pulse Oximetry 100 05/09/23 14:08 Oxygen Delivery Room Air 05/09/23 14:08 Temperature 98.1 F 05/09/23 14:08 Pulse Rate 72 05/09/23 20:01 Respiratory Rate 18 05/09/23 18:00 Blood Pressure 138/82 05/09/23 20:01 Pulse Oximetry 100 05/09/23 14:08 Oxygen Delivery Room Air 05/09/23 14:08 Medical Decision Making Differential Diagnosis Differential Diagnosis: Dehydration, orthostatic hypotension, pulmonary embolism
--- NOTE | 2023-05-09 19:05 | PC.NURSE ---
This RN assumed care of patient. This RN took report from ИВАН Rojas.
[2023-05-09 19:18] LABS: D Dimer < 0.27 ug/mL (<0.48)
== END 2023-05-09 20:16 | disposition home or self-care (01) ==
PROVIDERS: Emergency Provider Emergency Medicine; PCP Registered Nurse
DX: I95.1 Orthostatic hypotension (principal)
CPT/HCPCS: 36415; 80053; 81025; 83735; 84443; 85025; 85380; 93005; 96360; 96361; 99284; J7030

== ENCOUNTER 2024-03-04 06:31 | Inpatient (IN) | payer BC, SELFPAY ==
[2024-03-04] VITALS (37 sets, daily range): BP systolic 98–138; BP diastolic 54–94; PULSE 74–104; TEMP 36.6–37.2; BMI 25.0
[2024-03-04 07:26] LABS: Basophils Percent Auto 0.2 % (0.2-1.2); Eosinophils Absolute Auto 0.3 K/mm3 (0-0.3); Eosinophils Percent Auto 2.4 % (0-4.4); Hematocrit 37.2 % (37.0-47.0); Hemoglobin 12.7 g/dL (12.0-15.0); Immature Granulocyte Absolute 0.04 K/mm3 (0.00-0.031); Immature Granulocyte Percent A 0.4 % (0-0.5); Lymphocytes Absolute Auto 2.11 K/mm3 (0.9-3.2); Lymphocytes Percent Auto 19.5 % (18.3-44.2); Mean Corpuscular HGB Conc 34.1 g/dl (32-36); Mean Corpuscular Hemoglobin 31.1 pg (26-34); Mean Platelet Volume 10.6 fl (7.4-10.4); Monocytes Absolute Auto 0.8 K/mm3 (0.1-0.6); Monocytes Percent Auto 6.9 % (2.6-8.5); Neutrophils Absolute Auto 7.7 K/mm3 (1.3-6.7); Neutrophils Percent Auto 70.6 % (45.5-73.1); Platelet Count Result 219 k/mm3 (150-375); Red Blood Count 4.09 M/mm3 (4.2-5.4); Red Cell Distribution Width 13.6 % (11.5-14.5); White Blood Count 10.8 K/mm3 (4.5-10.0)
[2024-03-04] MEDS: OXYTOCIN 30 UNITS/NS 500 ML 30 UNITS/500 ML BAG IV CONT (07:30)
[2024-03-04] MEDS: ceFAZolin 2 GM/D5W 50 ML 2 GM/50 ML BAG IVPB (07:31)
[2024-03-04] MEDS: LACTATED RINGERS 1,000 ML 125 ML IV CONT ×2 (07:31→15:52)
--- NOTE | 2024-03-04 07:51 | WPDANESEPP ---
Anes - Eval Pre Procedure Procedure: labor epidural Date/Time: 03/04/24 07:51 Surgeon: camelia Preop Diagnosis: pain during labor Pre Op Diagnosis: Iol Patient Data Age: 33 Gender: F Height: 1.68 m Weight: 70.5 kg Last Vital Signs Temp 37.1 C 03/04/24 07:00 Pulse 85 03/04/24 07:44 BP 115/75 03/04/24 07:44 O2 Del Method Room Air 03/04/24 06:59 Allergies Allergy/AdvReac Type Severity Reaction Status Date / Time Penicillins Allergy Hives Verified 02/16/24 14:32 Home Medications Medication Instructions Recorded Confirmed Type levothyroxine 50 mcg tablet 75 mcg PO DAILY 09/06/21 10/10/21 History vit no.95-ferrous 1 tablet PO DAILY 09/06/21 10/10/21 History fumarate 28 mg-folic acid 800 mcg tablet () hydrocortisone 2.5 % topical cream 1 ea topical BID PRN Hemorrhoids 10/10/21 10/10/21 History with perineal applicator Laboratory Tests 03/04/24 06:51 WBC 10.8 H K/mm3 (4.5-10.0) RBC 4.09 L M/mm3 (4.2-5.4) Hgb 12.7 g/dL (12.0-15.0) Hct 37.2 % (37.0-47.0) MCV 91.0 fl (80-100) MCH 31.1 pg (26-34) MCHC 34.1 g/dl (32-36) RDW 13.6 % (11.5-14.5) Plt Count 219 k/mm3 (150-375) MPV 10.6 H fl (7.4-10.4) Immature Gran % (Auto) 0.4 % (0-0.5) Neut % (Auto) 70.6 % (45.5-73.1) Lymph % (Auto) 19.5 % (18.3-44.2) [place] % (Auto) 6.9 % (2.6-8.5) Eos % (Auto) 2.4 % (0-4.4) Baso % (Auto) 0.2 % (0.2-1.2) Lymph # (Auto) 2.11 K/mm3 (0.9-3.2) [place] # (Auto) 0.8 H K/mm3 (0.1-0.6) Eos # (Auto) 0.3 K/mm3 (0-0.3) Baso # (Auto) 0.0 K/mm3 (0.0-0.1) Abs Immat Gran (auto) 0.04 H K/mm3 (0.00-0.031) Absolute Neuts (auto) 7.7 H K/mm3 (1.3-6.7) Absolute Nucleated RBC 0.000 K/mm3 (0.0-0.012) Nucleated RBC % 0.0 % (0.0-0.2) RPR Pending HIV 1&2 Ab/P24 Ag 4thGn Pending Blood Type Pending Antibody Screen Pending Patient hx anesthesia problems: none Family hx anesthesia problems: none Results Review: All pre-operative results and documents have been reviewed as part of the pre-operative evaluation. [facility] Past Medical History Medical History (Updated 03/04/24 @ 07:51 by Rimma Roche CRNA) Hypothyroidism (acquired) IUP (intrauterine ), incidental Family History Family History Sibling Colon cancer Grandparent Diabetes mellitus Grandparent Ovarian cancer Mother Asthma Idiopathic anaphylaxis Sibling Asthma Grandparent Malignant neoplasm of prostate Social History Social History Smoking status: Never smoker Second hand tobacco smoke exposure: No Substance use: never Do You Feel Safe in your Home?: Yes Lack of Transportation: No Lack of Food: Never True Current Housing: I Have Housing Concerned About Future Housing: No Difficulty Paying Gas/Electric Bills: No Difficulty Paying for Meds: No Currently Unemployed: No Education: Master's Degree or Higher Difficulty w/ Childcare or Family Care: No Spiritual care concerns: No Exam Day of Procedure 03/04/24 07:51
[2024-03-04 08:25] LABS: HIV 1/2 Ab P24 Ag Result Negative (Negative)
--- NOTE | 2024-03-04 08:50 | PM.IMHP ---
H&P: HPI History of Present Illness Date/Time: 03/04/24 08:50 Chief Complaint: Here for induction of labor. Narrative: 33 y/o at 39 1/7 weeks with variable presentation, here for induction of labor. GBS bacteruria in . Review of Systems Review of Systems: All systems reviewed & are unremarkable except as noted in HPI and below PMFSH Past Medical History Medical History Hypothyroidism (acquired) IUP (intrauterine ), incidental Family History Family History Sibling Colon cancer Grandparent Diabetes mellitus Grandparent Ovarian cancer Mother Asthma Idiopathic anaphylaxis Sibling Asthma Grandparent Malignant neoplasm of prostate Social History Social History Smoking status: Never smoker Second hand tobacco smoke exposure: No Substance use: never Do You Feel Safe in your Home?: Yes Lack of Transportation: No Lack of Food: Never True Current Housing: I Have Housing Concerned About Future Housing: No Difficulty Paying Gas/Electric Bills: No Difficulty Paying for Meds: No Currently Unemployed: No Education: Master's Degree or Higher Difficulty w/ Childcare or Family Care: No Spiritual care concerns: No Meds Home Medications and Allergies Home Medications Medication Instructions Recorded Confirmed Type levothyroxine 50 mcg tablet 75 mcg PO DAILY 09/06/21 10/10/21 History vit no.95-ferrous 1 tablet PO DAILY 09/06/21 10/10/21 History fumarate 28 mg-folic acid 800 mcg tablet () hydrocortisone 2.5 % topical cream 1 ea topical BID PRN Hemorrhoids 10/10/21 10/10/21 History with perineal applicator Allergies Allergy/AdvReac Type Severity Reaction Status Date / Time Penicillins Allergy Hives Verified 02/16/24 14:32 Vital Signs Vital Signs - 24 hr 03/04/24 06:59 03/04/24 07:29 03/04/24 07:44 Temperature Pulse Rate 104 H 85 Blood Pressure 117/88 115/75 Oxygen Delivery Room Air 03/04/24 07:00 03/04/24 07:59 03/04/24 08:14 Temperature 37.1 C Pulse Rate 89 77 Blood Pressure 108/76 110/75 Oxygen Delivery 03/04/24 08:29 03/04/24 08:44 Temperature Pulse Rate 80 80 Blood Pressure 121/77 123/85 Oxygen Delivery Exam Const: Orientation/consciousness: patient oriented x3 Other: Well-developed, well-nourished female in no acute distress. Neck: Thyroid: thyroid normal Lymphatic: no lymphadenopathy noted (in neck, axilla or inguinal nodes) Resp: Effort & Inspection: normal respiratory effort Auscultation: clear to auscultation bilaterally Cardio: Rate: regular rate Rhythm: regular rhythm Heart sounds: S1 normal heart sound present and S2 normal heart sound present GI: Other: ABD: Soft, nontender, nondistended, gravid. NST reactive. TOCO: rare contractions. No guarding or rebound tenderness. No hepatosplenomegaly. Bedside ultrasound by me shows cephalic presentation. : General: Yes no CVA tenderness Other: Cervix 2/50/-2. Cephalic presentation. AROM with clear fluid. Back/Spine/Pelvis: Back: no CVA tenderness Skin: General skin exam: normal color and no rashes or lesions noted Neuro: General: patient oriented x3 Extrem: Other: Extremities: nontender with no edema Psych: Mental Status: mental status grossly normal Affect: normal affect H&P: Results Labs Labs: Short CBC 03/04/24 Range/Units 06:51 WBC 10.8 H (4.5-10.0) K/mm3 Hgb 12.7 (12.0-15.0) g/dL Hct 37.2 (37.0-47.0) % Plt Count 219 (150-375) k/mm3 Assessment and Plan Assessment and plan (1) Term : Code(s): Z34.90 - Encounter for supervision of normal , unspecified, unspecified trimester Status: Acute Assessment and Plan: A: IUP at 39 1/7 weeks wi
--- NOTE | 2024-03-04 11:56 | PM.OBPNLAB ---
Pain Control Date/time seen: 03/04/24 11:56 Feeling contractions, not painful. Pelvic Exam Dilation (cm): 2 Effacement (%): 50 station: -2 Contractions Contraction frequency: 3 Contraction pattern: Regular Status status: Category l Assessment and Plan Comments: Continue labor.
[2024-03-04 13:15] LABS: Rapid Plasma Reagin Non-Reactive (NonReactive)
[2024-03-04] MEDS: ceFAZolin 1 GM/NS 50 ML 1 GM/50 ML BAG IVPB ×2 (15:58→23:38)
--- NOTE | 2024-03-04 16:32 | PM.OBPNLAB ---
Pain Control Date/time seen: 03/04/24 16:32 Comments: Still feeling contractions, still fairly mild. Pelvic Exam Dilation (cm): 2 Effacement (%): 50 station: -2 Contractions Contraction frequency: 3 Contraction pattern: Regular Status status: Category l Assessment and Plan Pitocin rate (mU/min): 18 Comments: IUPC placed. Continue labor.
[2024-03-05] VITALS (143 sets, daily range): BP systolic 87–214; BP diastolic 38–179; PULSE 53–259; RESP 16–18; TEMP 36.6–37.4; O2SAT 91–100
[2024-03-05] MEDS: LACTATED RINGERS 1,000 ML 125 ML IV CONT (02:40)
[2024-03-05] MEDS: OXYTOCIN 30 UNITS/NS 500 ML 30 UNITS/500 ML BAG 999 UNITS IV CONT (08:00)
[2024-03-05] MEDS: METHYLERGONOVINE MALEATE 0.2 MG/ML VIAL IM (08:09)
--- NOTE | 2024-03-05 08:23 | PM.OBPRVD ---
OB - Vaginal Delivery Note Procedure Delivery date: 03/05/24 Events: Positive Group B Strep (GBS) Induction method: Per Cervidil Protocol Delivery monitor: External FHT and External Uterine Route of delivery: Episiotomy description: None Laceration Description: None Specimen: No Quantitative Blood Loss (ml): 61 Anesthesia type: Epidural Disposition: Floor Complications: No immediate complications Narrative: patient was admitted by Dr. Dumont for induction of labor underwent rapid change in the and again to completely dilated I was called to do the. The head delivered in the TANJA position. Mild shoulder dystocia was noted. The patient was placed in modified Godwin Lal. Rotation of the shoulder to the maternal right was undertaken with suprapubic pressure from the nurse on patient's right. Anterior posterior shoulder then delivered spontaneous. Elliott cord clamped x2 cut infant passed off the table. She did receive 3 doses of Ancef as she is group B strep positive Baby Date of : 03/05/24 Time of : 07:43 Weeks of gestation at delivery: 39 gender: Male presentation: vertex position: Right Occiput Anterior Placenta delivery description: Spontaneous Cord Vessel Description: 3 Vessels
--- NOTE | 2024-03-05 08:26 | PM.DS ---
DS: Admitting Diagnosis Discharge Date 03/07/2024 Admitting Diagnosis term with positive group B strep DS: Discharge Diagnosis Discharge Diagnosis (1) Term : Code(s): Z34.90 - Encounter for supervision of normal , unspecified, unspecified trimester Status: Acute (2) GBS bacteriuria: Code(s): R82.71 - Bacteriuria Status: Acute DS: Summary Hospital Course Reason for hospitalization: patient was admitted for induction of labor on evening 03/04/2024. She underwent spontaneous vaginal delivery on the make up operator helper of with epidural anesthesia Hospital Course: patient's hospital course was unremarkable. She remained afebrile. She was up difficulty regular diet ambulating, and generally without complaints. Time Spent with Patient Time attestation: Total time spent providing and/or coordinating discharge services: Exam Const: General: cooperative, healthy appearing and comfortable Nutritional Appearance: average body habitus Orientation/consciousness: oriented to person, oriented to place and oriented to time HENMT: Head: normal to inspection Resp: Effort & Inspection: normal respiratory effort GI: Inspection: normal to inspection ( Fundus firm below the umbilicus) DS: Data Data Completed and Pending Labs on day of discharge: Labs from last 24 hours 03/04/24 06:51 RPR Non-reactive Antibody Screen Negative Discharge Plan Discharge Attending physician on discharge: Mickey Paez Discharging Clinician: Jose Martin Forrester Anticipated Discharge Date/Time: 03/07/24 07:16 Patient Disposition: Home, Self-Care Activity: may shower and pelvic rest Diet: regular Discharge Instructions: Call or return if temperature above 100.4? F, increased abdominal pain, increased vaginal bleeding or any new problems. Education: Mom and Baby Guide Given to: Mother Follow-Up: Call your delivering provider's office for an appointment to be seen in: 6 Weeks Mom and baby should come to the [facility] for the follow-up appointment. Appointment Date/Time: March 09, 2024 at 9:00 am What to expect at your follow-up visit: Physical Assessment Call [phone] if you are unable to keep your appointment time. BREAST CARE: * Wear a snug supportive bra. * For engorgement discomfort: Breast Feeding: * Apply warm moist washcloths * Express milk as needed to relieve engorgement * Wear loose clothing Bottle Feeding: * May apply ice packs * For sore nipples: * Identify correct latch-on * Apply warm moist washcloths before and after nursing * Air dry nipples after nursing * May apply Lansinoh cream to nipples PERINEAL CARE: * Until bleeding stops, use your kala bottle after urinating * Change your pad frequently throughout the day * You may take sitz baths several times a day (fill your bathtub with warm water and soak for 20 minutes.) Do NOT bathe in the water * No tub baths until seen by your physician - You may shower ACTIVITY: * Rest as much as possible. * Do not exercise or lift anything heavier than your baby (such as laundry or other children.) * Avoid stairs or driving as much as possible. * Do not put anything into the vagina. No douching, tampons, or sexual activity until seen by physician. NOTIFY PHYSICIAN IF YOU HAVE ANY QUESTIONS OR IF ANY OF THE FOLLOWING SYMPTOMS OCCUR: * If your perineum becomes red, swollen, or more painful than what you have experienced in the hospital. * If your vaginal bleeding becomes foul smelling. * If your vaginal bleeding becomes more heavy than a period or if your bleeding changes from pink to bright red. However, you may pass an occasional walnut-sized clot once or twice for the first week . * If you experience a sharp, shooting pain in you calves. * If you discover a hard, reddened are
[2024-03-05] MEDS: OXYTOCIN 30 UNITS/NS 500 ML 30 UNITS/500 ML BAG 125 UNITS IV CONT (08:32)
[2024-03-05] MEDS: miSOPROStol 200 MCG TABLET 1000 MCG RECTAL (08:32)
--- NOTE | 2024-03-05 10:10 | PC.NURSE ---
Patient transferred to post room # 287 via wheelchair. Support person present. Oriented to unit, room, information board, rooming in, admission packet and security measures. Patient verbalizes understanding.
--- NOTE | 2024-03-05 12:34 | PC.NURSE ---
[id number]. Consulted with patient to assess needs related to . Discussed with mother her successes, concerns and any questions she has. Mother verbalized that she fed her first two babies for 14 & 18 months. We reviewed working with the , supporting breast, protecting her nipples with an optimal deep latch, good positioning, and good hand washing. Encouraged understanding the benefits of skin to skin, responding to feeding cues, frequencies of feeding 8-12 times in 24 hours (approximately 2-3 hours), duration of feedings, milk production, intake/output feeding sheet and signs of adequate intake encouraging swallowing at the breast. Infant is currently down in level 2 nursery, and mom was able to go down and feed. Mom explained she was able to get infant to latch without difficulty or discomfort to mother for 20 min. Nipple care reviewed with optimal latch, good positioning and using clean hands when touching her breast. Resources used to facilitate learning were used from the visual handouts in the room & name written on board. Mother voiced understanding of the education shared, to call for assistance if the does not latch or if there is discomfort with . Reported to the Primary RN.
[2024-03-05] MEDS: IBUPROFEN 600 MG TABLET PO (17:53)
[2024-03-06] MEDS: IBUPROFEN 600 MG TABLET PO ×3 (02:30→20:44)
[2024-03-06 05:00] VITALS: BP 125/76; PULSE 82; RESP 16; TEMP 36.9
[2024-03-06 05:08] LABS: Hematocrit 31.1 % (37.0-47.0); Hemoglobin 10.2 g/dL (12.0-15.0)
--- NOTE | 2024-03-06 05:31 | PM.OBPNVD ---
OB - PN: Subj Subjective Date/time seen: 03/06/24 05:31 Patient comments: no complaints and pain well controlled baby status: doing well OB - PN: Obj Data Labs 03/06/24 04:54 Labs: Laboratory Results - last 24 hr 03/06/24 04:54 Hgb 10.2 L Hct 31.1 L OB - PN A/P Plan day: 1 Plan: routine care Time Spent With Patient Time: Total time spent is greater than 50% in coordination of care (as documented) at patient's floor/unit and/or counseling patient: Time with patient: less than 15 minutes Exam Const: General: cooperative, healthy appearing and comfortable Nutritional Appearance: average body habitus Orientation/consciousness: oriented to person, oriented to place and oriented to time Resp: Effort & Inspection: normal respiratory effort Cardio: Rate: regular rate Rhythm: regular rhythm Heart sounds: S1 normal heart sound present and S2 normal heart sound present GI: Inspection: normal to inspection
[2024-03-06 06:20] VITALS: BP 108/73; PULSE 76; RESP 18; TEMP 36.7
--- NOTE | 2024-03-06 10:36 | WPDANLDPN2 ---
Anes-Prog Note L&D Date/Time: 03/06/24 10:36 Comfortable throughout: labor and delivery Neuraxial method: epidural Epidural/Spinal procedure site: clean & non-tender Neuro status: Neuro function grossly intact. Cardiovascular status: normal Respiratory status: normal Airway patency: baseline Mental status: baseline Post-Op hydration status: normal Vital Signs: Last Vital Signs Temp 36.7 C 03/06/24 06:20 Pulse 76 03/06/24 06:20 Resp 18 03/06/24 06:20 BP 108/73 03/06/24 06:20 Pulse Ox 100 03/05/24 10:25 O2 Del Method Room Air 03/05/24 22:00 Pain score (VAS): 3/10 I/O: Intake & Output 03/05/24 03/06/24 03/06/24 23:59 07:59 15:59 Intake Total 700 Balance 700 Post-procedural complaints: none Patient feedback: Patient satisfied with anesthetic care.
[2024-03-06] MEDS: DOCUSATE SODIUM 100 MG CAPSULE PO (10:41)
[2024-03-06] MEDS: MULTIVIT/MIN/PREN/FOL AC/IRON TABLET 1 TAB PO (10:41)
[2024-03-06 19:25] VITALS: BP 131/85; PULSE 74; RESP 12; TEMP 37.2; O2SAT 100
--- NOTE | 2024-03-07 07:28 | PM.OBPNVD ---
OB - PN: Subj Subjective Date/time seen: 03/07/24 07:28 Patient comments: no complaints and pain well controlled baby status: doing well OB - PN: Obj Data Labs 03/06/24 04:54 OB - PN A/P Plan day: 2 Plan: routine care, discharge home and follow up 6 weeks Time Spent With Patient Time: Total time spent is greater than 50% in coordination of care (as documented) at patient's floor/unit and/or counseling patient: Time with patient: less than 15 minutes Exam Const: General: cooperative, healthy appearing and comfortable Nutritional Appearance: average body habitus Orientation/consciousness: oriented to person, oriented to place and oriented to time Resp: Effort & Inspection: normal respiratory effort Cardio: Rate: regular rate Rhythm: regular rhythm Heart sounds: S1 normal heart sound present and S2 normal heart sound present GI: Inspection: normal to inspection
[2024-03-07 07:53] VITALS: BP 122/81; PULSE 82; RESP 16; TEMP 36.6; O2SAT 100
[2024-03-07] MEDS: DOCUSATE SODIUM 100 MG CAPSULE PO (09:09)
[2024-03-07] MEDS: MULTIVIT/MIN/PREN/FOL AC/IRON TABLET 1 TAB PO (09:09)
[2024-03-07] MEDS: IBUPROFEN 600 MG TABLET PO (09:09)
[2024-03-09 09:29] VITALS: BP 152/84; PULSE 96; RESP 18; TEMP 36.5; O2SAT 100
== END 2024-03-07 11:30 | disposition home or self-care (01) | DRG 807 ==
LOC: ANHLDR 03-05 08:28 → ANHOB2 03-05 13:54 → ANHLDR 03-09 07:29 → ANHOB2 03-09 07:29
PROVIDERS: Admitting Provider Obstetrics & Gynecology; PCP Registered Nurse; Visit Provider Obstetrics & Gynecology
DX: O99.824 Streptococcus B carrier state complicating childbirth (principal); Z37.0 Single live birth; O99.284 Endocrine, nutritional and metabolic diseases complicating childbirth; E03.9 Hypothyroidism, unspecified; O66.0 Obstructed labor due to shoulder dystocia; O63.9 Long labor, unspecified; Z3A.39 39 weeks gestation of pregnancy
CPT/HCPCS: 36415; 85014; 85018; 85025; 86592; 86703; 86850; 86900; 86901; A9270; G0432; J0690; J2210; J2590; J2795; J7120